=== PATIENT | female | born 1940 | race Caucasian/White ===

== ENCOUNTER 2019-06-26 20:28 | Inpatient (IN) | payer MEDICARE ==
[~2019-06-26] VITALS: Ht 157.5 cm; Wt 80.7 kg
[~2019-06-26 20:28] MED LIST: ADALAT CC90 MG; ASPIRIN EC325 M1 PO; CIPROFLOXACIN500 M3 PO; COMBIVENT RESPIM4 GM IH; FELDENE20 MG; GLUCOPHAGE1000 MG PO; LEVOXYL75 MCG; LEVOXYL88 MCG PO; LISINOPRIL-HCT1 EAC1 PO; LOVASTAT40; MAGOX 400400 MG PO; MICRONASE5 MG; MICRONASE5 MG PO; MINOCYCLINE HC100 M2 PO; MOBIC15 MG PO; NORVASC 5 MG TAB5 MG PO; ONGLYZA5 MG PO; PIOGLITAZONE15 MG; PRAVASTATIN SOD40 MG PO; SERTRALINE HCL100 MG PO; TRAMADOL 50 MG50 MG PO; VITAMIN D32000 UNIT PO; VITAMIN D3400 UNIT PO; [UNRECOGNIZED DRUG - REMARK]
[2019-06-26 20:33] VITALS: BP 139/75
[2019-06-26] MEDS ORDERED: JANUMET 50-1,01 EACH PO (20:44)
[2019-06-26 21:00] LABS: URINE BILIRUBIN NEGATIVE (Negative); URINE BLOOD NEGATIVE (Negative); URINE CLARITY CLEAR; URINE COLOR STRAW; URINE GLUCOSE-RANDOM NEGATIVE (Negative); URINE KETONES NEGATIVE (Negative); URINE LEUKOCYTES-REFLEX NEGATIVE (Negative); URINE NITRITE-REFLEX NEGATIVE (Negative); URINE PROTEIN NEGATIVE (Negative); URINE UROBILINOGEN 0.2 E.U./dl (0.2-1.0)
[2019-06-26 21:12] LABS: ABSOLUTE BASOPHILS 0.1 thou/uL (0.0-0.2); ABSOLUTE EOSINOPHILS 0.3 thou/uL (0.0-0.7); ABSOLUTE LYMPHOCYTES 2.2 thou/uL (0.8-5.3); ABSOLUTE MONOCYTES 0.5 thou/uL (0.0-1.2); ABSOLUTE NEUTROPHILS 4.9 thou/uL (1.6-8.1); BASOPHILS 0.8 %; EOSINOPHILS 3.7 %; HEMATOCRIT 32.3 % (37.0-47.0); HEMOGLOBIN 11.4 gm/dL (12.0-15.0); LYMPHOCYTES 27.8 %; MCH 30.3 pg (26.0-34.0); MCHC 35.1 g/dL (28.0-37.0); MCV 86.2 fL (80.0-100.0); MONOCYTES 6.3 %; MPV 7.8 fl. (7.2-11.1); NUCLEATED RBCS 0 /100WBC; PLATELET COUNT* 376 thou/uL (150-400); POLYS 61.4 %; RBC 3.75 mil/uL (4.20-5.00); RDW-CV 13.1 % (10.5-14.5)
[2019-06-26 21:24] LABS: CREATININE 1.8 mg/dL (0.6-1.3); POTASSIUM 3.7 mmol/L (3.5-5.1)
[2019-06-26 21:29] LABS: ALBUMIN 3.9 g/dL (3.4-5.0); TOTAL BILIRUBIN 0.2 mg/dL (<0.1-1.0); TOTAL PROTEIN 8.1 g/dL (6.4-8.2)
[2019-06-26 21:37] LABS: APTT 26.2 Seconds (25.0-31.3); INR 1.1
[2019-06-27] VITALS (9 sets, daily range): BP systolic 114–155; BP diastolic 44–96
--- NOTE | 2019-06-27 06:08 | NUR ---
RECEIVED REPORT FROM BLADE FILER CLARITA AT 0028. PT ARRIVED TO UNIT AT 0035 VIA BED. SR WITH PACS ON STROBOSCOPE OPERATOR. PT ORIENTED TO ROOM AND CALL LIGHT. PT VOICED NO CONCERNS THIS SHIFT. IV FLUIDS INFUSING. NEGATIVE SEPSIS SCREENING. HIGH FALL PRECAUTIONS IN PLACE. CALL LIGHT WITHIN REACH.
--- NOTE | 2019-06-27 10:04 | EKG ---
[place] [address] ELECTROCARDIOGRAM REPORT Name: ANTHONY EVE Room: [address] ADM IN .R.#: [id number] Admission: 06/26/19 Attend Phys: Eyal Avila MD Discharge: Date of : 42 Report #: [id number] THIS REPORT FOR: //name// [facility] ED Test Date: 2019-06-26 Test Time: 20:48:02 Pat Name: ANTHONY WEN Department: Room: [facility] Gender: F Diet Tech: : 1940 Requested By: Hermes Kim Order Number: [id number] MD: Atilio Hudson Measurements Intervals Moran Rate: 76 P: 56 LA: 159 QRS: 33 QRSD: 101 T: 43 QT: 421 QTc: 474 Interpretive Statements Sinus rhythm Multiple premature complexes, vent & supraven Minimal ST elevation, anterior leads Compared to ECG 09/15/2012 08:43:35 pvc's and pac's noted Electronically Signed On 06-27-2019 10:03:25 GRE INSTRUCTOR by Atilio Hudson [email or web address] <ELECTRONICALLY SIGNED> By: Atilio Hudson MD, FAC 06/27/19 1003 47 47 Atilio Hudson MD, [facility] /EPI
--- NOTE | 2019-06-27 13:44 | NUR ---
ASSUMED CARE OF PATIENT THIS AM AT 0730. PATIENT IS ALERT AND ORIENTED X 4. SHE DENIES PAIN AND DISCOMFORT. PATIENT CONTINUES TO RECIEVE IV FLUIDS. TELE SHOWS SR. SHE IS TAKING HER DIET WELL. DR IN TO ROUND AND NNO AT THIS TIME. WILL CONTINUE TO MONITOR PATIENT COMFORT.
--- NOTE | 2019-06-27 16:55 | NUR ---
Pt is A&O. Resides at home with her dtr and DIAMOND. Independent, DIAMOND cooks, family drives. No DME. No hx of HH or SNF. Goal is home at dc, no needs anticipated.
[2019-06-28] VITALS: BP 133/59
[2019-06-28 04:00] VITALS: BP 156/50
[2019-06-28 04:53] LABS: HEMATOCRIT 25.4 % (37.0-47.0); MCH 29.9 pg (26.0-34.0); MCV 85.4 fL (80.0-100.0); MPV 7.7 fl. (7.2-11.1); RBC 2.98 mil/uL (4.20-5.00); WBC 6.5 thou/uL (4.0-11.0)
--- NOTE | 2019-06-28 05:07 | NUR ---
ASSUMED PT CARE AT 1915. SR WITH OCCASIONAL PACS THIS SHIFT. PT DENIES PAIN THIS SHIFT. ORTHOSTATIC BP COMPLETED. HIGH FALL PRECAUTIONS IN PLACE. HOURLY ROUNDING COMPLETED. CALL LIGHT WITHIN REACH. IV FLUIDS INFUSING.
[2019-06-28 05:17] LABS: HEMOGLOBIN 8.9 gm/dL (12.0-15.0)
[2019-06-28 05:23] LABS: CALCIUM 7.9 mg/dL (8.5-10.1); CREATININE 1.1 mg/dL (0.6-1.3); MAGNESIUM 1.7 mg/dL (1.8-2.4); POTASSIUM 3.9 mmol/L (3.5-5.1)
[2019-06-28 08:00] VITALS: BP 156/68
[2019-06-28 11:30] VITALS: BP 136/48
[2019-06-28 13:20] VITALS: BP 156/68
--- NOTE | 2019-06-28 14:34 | 2DMMODE ---
[place] [address] 2 D/M-MODE ECHOCARDIOGRAM Name: ANTHONY WEN Room: [address] ADM IN [facility]#: [id number] Admission: 06/26/19 Attend Phys: Eyal Avila, Discharge: Date of : 42 Date of Service: 06/28/19 1433 Report #: [id number] THIS REPORT FOR: //name// APPROVED REPORT Study performed: 06/28/2019 10:44:03 EXAM: Comprehensive 2D, Doppler, and color-flow Echocardiogram Patient Location: In-Patient Room #: 230 Status: routine BSA: 1.76 HR: 65 bpm BP: 156/68 mmHg Rhythm: NSR Other Information Study Quality: Good Indications Syncope 2D Dimensions IVSd: 13.15 (7-11mm) LVOT Diam: 19.26 (18-24mm) LVDd: 38.65 mm PWd: 11.26 (7-11mm) Ascending Ao: 29.84 (22-36mm) LVDs: 22.81 (25-40mm) Aortic Root: 29.64 mm Volumes Left Atrial Volume (Systole) LA ESV Index: 44.30 mL/m2 Aortic Valve AoV Peak Haresh.: 1.71 m/s AO Peak Gr.: 11.71 mmHg LVOT Max P.63 mmHg AO Mean Gr.: 6.91 mmHg LVOT Mean P.44 mmHg LVOT Max V: 1.08 m/s AO V2 VTI: 42.02 cm LVOT Mean V: 0.72 m/s ALBERTINA (VTI): 2.00 cm2 LVOT V1 VTI: 28.78 cm Mitral Valve E/A Ratio: 0.80 MV Decel. Time: 288.00 ms MV E Max Haresh.: 0.97 m/[place] [address] 2 D/M-MODE ECHOCARDIOGRAM Name: OSMAN WENDamir MAXWELLE Room: [address] IN [facility].#: [id number] Admission: 06/26/19 Attend Phys: Eyal Avila, Discharge: Date of : 42 Date of Service: 06/28/19 1433 Report #: [id number] MV PHT: 83.52 ms MVA (PHT): 2.63 cm2 TDI E/Lateral E': 12.13 E/Medial E': 13.86 Medial E' Haresh.: 0.07 m/s Lateral E' Haresh.: 0.08 m/s Pulmonary Valve PV Peak Haresh.: 1.04 m/s PV Peak Gr.: 4.29 mmHg Tricuspid Valve RAP Estimate: 5.00 mmHg TR Peak Gr.: 23.82 mmHg RVSP: 28.00 mmHg PA Pressure: 28.00 mmHg Left Ventricle The left ventricle is normal size. There is normal LV segmental wall motion. Mild concentric left ventricular hypertrophy. Left ventricular systolic function is normal. LVEF is 65-70%. Grade I - abnormal relaxation pattern. Right Ventricle The right ventricle is normal size. The right ventricular systolic function is normal. Atria Left atrium is moderately dilated. Right atrium is mildly dilated. Aortic Valve Mild aortic valve sclerosis. No aortic regurgitation is present. Mild aortic stenosis. Mitral Valve There is mitral annular calcification. Mild mitral regurgitation. No evidence of mitral valve stenosis. Tricuspid Valve The tricuspid valve is normal in structure. Mild tricuspid regurgitation. The RVSP is 30-35 mmHg. Pulmonic Valve The pulmonary valve is normal in structure. There is no pulmonic [place] [address] 2 D/M-MODE ECHOCARDIOGRAM Name: ANTHONY WEN Room: [address] IN [facility]#: [id number] Admission: 06/26/19 Attend Phys: Eyal Avila, Discharge: Date of : 42 Date of Service: 06/28/19 1433 Report #: [id number] Great Vessels The aortic root is normal in size. IVC is normal in size and collapses >50% with inspiration. Pericardium There is no pericardial effusion. <Conclusion> The left ventricle is normal size. Mild concentric left ventricular hypertrophy. Left ventricular systolic function is normal. LVEF is 65-70%. Grade I - abnormal relaxation pattern. Left atrium is moderately dilated. Right atrium is mildly dilated. Mild aortic valve sclerosis. Mild aortic stenosis. Mild mitral regurgitation. Mild tricuspid regurgitation. The RVSP is 30-35 mmHg. IVC is normal in size and collapses >50% with inspiration. <ELECTRONICALLY SIGNED> By: Mohsen Leon MD, FACC 06/28/19 1433 1433 1433 Mohsen Leon MD, FACC /INF
[2019-06-28] MEDS ORDERED: LISINOPRIL2.5 MG PO (16:21)
[2019-06-28 16:35] VITALS: BP 156/68
--- NOTE | 2019-06-28 17:28 | NUR ---
ASSUMED CARE OF PT APPROX 0730. REASSESSMENT COMPLETED CHARTED. MEDICATION GIVEN CHARTED. DISCUSSED PT CARE WITH PT, PT VERBALIZED UNDERSTANDING. HOURLY ROUNDING FOR PT SAFTEY, SAFTEY PRECAUTIONS UTILIZED. PT DISHCARGE TEACHING COMPLETED, SCRIPT GIVEN. PT VERBALIZED UNDERSTANDING. PTS DAUGHTER IN ROOM DURING DISCHARGE TEACHING.
[2019-06-28 18:49] LABS: HEMATOCRIT 28.1 % (37.0-47.0); HEMOGLOBIN 9.7 gm/dL (12.0-15.0)
== END 2019-06-28 19:00 | disposition home or self-care (01) | DRG 682 ==
LOC: M.ERS 20:28 → M.2W 22:50 → M.TBA-ER 22:50 → M.2W 06-27 00:41
PROVIDERS: Emergency Medicine Emergency Medical Services; Family Medicine; Registered Nurse; ADMIT Internal Medicine
DX: N17.9 Acute kidney failure, unspecified (principal); G93.41 Metabolic encephalopathy; I95.1 Orthostatic hypotension; E66.9 Obesity, unspecified; M19.90 Unspecified osteoarthritis, unspecified site; D64.9 Anemia, unspecified; E78.00 Pure hypercholesterolemia, unspecified; E03.9 Hypothyroidism, unspecified; I10 Essential (primary) hypertension; G89.29 Other chronic pain; E11.9 Type 2 diabetes mellitus without complications; Z79.82 Long term (current) use of aspirin; Z79.84 Long term (current) use of oral hypoglycemic drugs; Z79.899 Other long term (current) drug therapy; Z88.8 Allergy status to other drugs, medicaments and biological substances; Z90.12 Acquired absence of left breast and nipple; Z90.49 Acquired absence of other specified parts of digestive tract; Z87.891 Personal history of nicotine dependence; Z68.32 Body mass index [BMI] 32.0-32.9, adult; Z85.3 Personal history of malignant neoplasm of breast; T50.995A Adverse effect of other drugs, medicaments and biological substances, initial encounter

== ENCOUNTER → 2019-09-22 | Outpatient (CLI) | payer MEDICARE ==
[~2019-09-22] MED LIST changes: +ACTOS 30 MG TAB30 M1 PO; +HUMULIN R100 UNIT/1 PO; +JANUMET 50-1,01 EACH PO; +LISINOPRIL2.5 MG PO; +METFORMIN HCL500 M3 PO
--- NOTE | ~2019-09-22 | PAINCON ---
[address] [address] PAIN MANAGEMENT CONSULTATION Name: ANTHONY WEN [id number] Admission: 09/22/19 Attend Phys: Eva Worley MD Discharge: Date of : 42 Report #: [id number] THIS REPORT FOR: //name// cc: Atilio Storm MD, David L. MD ~ THIS REPORT FOR: //name// CC: Atilio Worley DATE OF SERVICE: 09/22/2019 PRIMARY CARE PHYSICIAN: Atilio Storm MD CHIEF COMPLAINT: Pain in the low back area and down into the calf on the right and left side. HISTORY: The patient is a 79-year-old female who has been seen in the pain clinic in the past because of lumbar radiculopathy. She rates her pain today as 8/10. She describes it as an aching feeling down into her legs and into her calf, right side and left side are involved. Notes that the pain is worse when she is prolonged standing. Exact problematic with walking. Sitting and lying down improves her discomfort. She describes it as constant, cramping, aching brief and tender. She underwent an epidural steroid injection in 2017. She noted improvement in her pain. She has returned today with the hopes of undergoing another epidural injection. She denies any new bowel or bladder dysfunction. Did note some elevation in her blood sugars in the past as a result of the injection. This was somewhat temporary for a day or so. ALLERGIES: No known drug allergies. CURRENT MEDICATIONS: Metformin 1000 mg, amlodipine 5 mg, lisinopril 20/12, meloxicam 15 mg, insulin. PAIN CLINIC ASSESSMENT AND PQRS: 1. Osteoarthritis. The patient does have joint disease and arthritis. She is not being treated for rheumatoid arthritis. 2. Height 5 feet 2 inches, weight 182 pounds, BMI is 33.4. 3. Vital Signs: Blood pressure 149/83, heart rate 99, respiratory rate 16, room air saturation 96%, temperature is 98.0. 4. Pain score 6/10. 5. Fall history: The patient has not fallen in the last 3 months. 6. Blood thinner. The patient is not on a blood thinning medication. 7. Hypertension. The patient is being treated for hypertension. 8. Opioids greater than 6 weeks. The patient is not on an opioid regimen. 9. Risk assessment tool, [place] [address] PAIN MANAGEMENT CONSULTATION Name: ANTHONY WEN Room: [facility]#: [id number] Admission: 09/22/19 Attend Phys: Eva Worley MD Discharge: Date of : 41 Report #: [id number] 10. Functional assessment tool has been reviewed. 11. Recreational drug use: The patient denies. 12. Tobacco: The patient denies. PHYSICAL EXAMINATION: GENERAL: The patient is a well-developed, well-nourished white female. Appears her stated age. She is alert and oriented x 3. Her affect is appropriate. Speech is fluent. HEENT: Normocephalic, atraumatic. Extraocular eye muscles intact. Sclerae nonicteric. Mucous membranes are moist. NECK: Without adenopathy or JVD. HEART: Regular rate. ABDOMEN: Nontender. EXTREMITIES: Lower extremity muscles strength 5-/5. The patient has pain and discomfort that is radiating down in the L4-L5 dermatomal distribution on the left as well as the right leg. IMPRESSION: 1. Lumbar radiculopathy in the L4-L5 dermatomal distribution, left and right leg. 2. Depression. 3. Hypertension. 4. Hypothyroidism. 5. Type 2 diabetes. 6. Chronic pulmonary disease. 7. History of spinal stenosis. RECOMMENDATIONS: We discussed treatment options with the patient. Risks and benefits of an epidural steroid injection were again discussed. They include but are not limited to infection, worsening the pain, no improvement in pain. The patient had some elevation in her blood sugars in the past. She will monitor them and treat it accordingly. The patient was then taken after questions were sought and answered to the procedure area. She was then assisted in getting on examination table. Her back was sterilely prepped with Betadine solution. A 0.25% bupivacaine was infiltrated at the L4-L5 interspace. A 17-gauge Tuohy with loss of resistance technique was used to gain access to the epidural space. There was no CSF, heme or paresthesia. Total of 80 mg Depo-Medrol, 40 mg triamcinolone and 2 mL of 0.25% bupivacaine was injected. The patient tolerated the procedure well. She remained in the Pain Clinic for an appropriate amount of time. She will [place] [address] PAIN MANAGEMENT CONSULTATION Name: ANTHONY WEN Room: [facility]#: [id number] Admission: 09/22/19 Attend Phys: Eva Worley MD Discharge: Date of : 41 Report #: [id number] We would like to thank you for letting us participate in her care. We hope she continues to improve. By: 1407 1431N. Narendra Worley MD /PMT
== END ==
LOC: M.PC 09:50
DX: M54.5 Low back pain (principal); F32.9 Major depressive disorder, single episode, unspecified; I10 Essential (primary) hypertension; E03.9 Hypothyroidism, unspecified; E11.9 Type 2 diabetes mellitus without complications; J98.4 Other disorders of lung; Z87.898 Personal history of other specified conditions; Z79.84 Long term (current) use of oral hypoglycemic drugs; Z79.811 Long term (current) use of aromatase inhibitors; Z79.891 Long term (current) use of opiate analgesic; Z79.899 Other long term (current) drug therapy

== ENCOUNTER → 2019-12-06 | Outpatient (CLI) | payer MEDICARE ==
[2019-12-06 09:46] LABS: CREATININE 1.2 mg/dL (0.6-1.3)
== END ==
LOC: M.LAB 09:14 → M.CT 11:00
PROVIDERS: ATTEND Internal Medicine
DX: D25.9 Leiomyoma of uterus, unspecified (principal); N85.8 Other specified noninflammatory disorders of uterus

== ENCOUNTER → 2020-02-16 | Outpatient (CLI) | payer MEDICARE ==
[~2020-02-16] MED LIST changes: +VOLTAREN GEL 1100 G1 TOP
--- NOTE | 2020-02-28 15:40 | PAINCON ---
[address] [address] PAIN MANAGEMENT CONSULTATION Name: ANTHONY WEN [id number] Admission: 02/16/20 Attend Phys: Eva Worley MD Discharge: Date of : 41 Report #: [id number] THIS REPORT FOR: //name// cc: Tika Zee Tammy RNP ~ THIS REPORT FOR: //name// CC: Eva Zee DATE OF SERVICE: 02/16/2020 CHIEF COMPLAINT: Both knees are painful. HISTORY: The patient is a 80-year-old female who has returned to the pain clinic. She underwent an epidural steroid injection for low back pain. She noticed some improvement in that and has had pretty good resolution of the lumbar radicular pain at this juncture. Her complaint today is that of bilateral knee pain. She has had knee injections in the past. She has had steroid injections. She has also had what sounds like injections per her report for lubrication of her knees. She rates her pain as a 5/10 in regards to the knees today. He has been using meloxicam to help with the pain. She notes that walking, standing can be problematic. Pain improves with rest. ALLERGIES: No known drug allergies. CURRENT MEDICATIONS: Metformin 1000 mg, amlodipine 5 mg, lisinopril 20/12.5, meloxicam 15 mg, insulin. PAIN CLINIC ASSESSMENT AND PQRS: 1. The patient does have some osteoarthritic changes involving her knees. She is not being treated for rheumatoid arthritis. 2. Height 5 feet 2 inches, weight 185 pounds, BMI is 33. 3. Vital Signs: Blood pressure 139/61, heart rate 79, respiratory rate 20, room air saturation 97%, temperature 98.6. 4. Pain intensity is 5/10. 5. Fall history: The patient has not fallen since we saw her last. 6. Blood thinner. The patient is not on a blood thinning medication. 7. Hypertension. The patient is not being treated for hypertension. 8. Opioids greater than 6 weeks. The patient is not on opioid regimen. 9. Risk assessment tool, low for opioid use. 10. Functional assessment tool has been reviewed. 11. Recreational drug use. The patient denies. 12. Tobacco: The patient denies. PHYSICAL EXAMINATION: [place] [address] PAIN MANAGEMENT CONSULTATION Name: ANTHONY WEN Room: [facility]#: [id number] Admission: 02/16/20 Attend Phys: Eva Worley MD Discharge: Date of : 41 Report #: [id number] GENERAL: The patient is a well-developed, well-nourished white female. Appears her stated age. She is alert and oriented x 3. Her affect is appropriate. Speech is fluent. She is accompanied. HEENT: Normocephalic, atraumatic. Extraocular eye muscles intact. Sclerae nonicteric. Mucous membranes are moist. NECK: Without adenopathy. The patient is awaiting official cover. HEART: Regular rate. ABDOMEN: Nontender. EXTREMITIES: Upper extremity muscle strength 5/5 for the major muscle groups in the upper extremity. The patient has pain and discomfort with soreness and decreased range of motion in her knees. Complains of foxn-pu-temf type of pain and discomfort. The patient is noticing increased pain and discomfort with activities of daily living. IMPRESSION: 1. History of bilateral knee pain with osteoarthritic changes. 2. History of lumbar radiculopathy, L4-L5 dermatomal distribution, improved. 3. Depression. 4. Hypertension. 5. Hypothyroidism. 6. Type 2 diabetes. 7. Chronic pulmonary disease. 8. History of spinal stenosis. RECOMMENDATIONS: We discussed treatment options with the patient. The patient has had injections in her knees. She had the last injection a few months ago. We discussed the limitations and the number of injections of steroid that one should receive in the knee area. At this juncture, I think we should try a more conservative approach. We can consider use of tramadol. We can also consider the use of a Voltaren gel to the affected area. Hopefully, that would be more helpful and efficacious in the knee area. Possibility of injections still remain an option. The patient also will continue to monitor her GI tract in regards to the chronic use of nonsteroidal anti-inflammatory medications. These can cause GI upset. The patient will also consider possibility of tramadol in the near future. We would like to thank you for letting us participate in her care. We hope she continues to improve. <ELECTRONICALLY SIGNED> By: Eva Worley MD 02/28/20 1540 0840 1329N. Narendra Worley MD /[facility]
== END ==
LOC: M.PC 08:29
PROVIDERS: ATTEND Anesthesiology Pain Medicine
DX: M25.561 Pain in right knee (principal); M25.562 Pain in left knee; F32.9 Major depressive disorder, single episode, unspecified; I10 Essential (primary) hypertension; E03.9 Hypothyroidism, unspecified; E11.9 Type 2 diabetes mellitus without complications; J98.4 Other disorders of lung; Z79.899 Other long term (current) drug therapy; Z87.39 Personal history of other diseases of the musculoskeletal system and connective tissue

== ENCOUNTER 2020-06-24 07:35 | Inpatient (IN) | payer MEDICARE ==
[~2020-06-24] VITALS: Ht 157.5 cm; Wt 80.7 kg
--- NOTE | ~2020-06-24 | PROC ---
[address] [address] PROCEDURE REPORT Name: ANTHONY EVE Room: [address] IN M.R.#: [id number] Admission: 06/24/20 Attend Phys: Antonina Carlin MD Discharge: 06/27/20 Date of : 41 Report #: [id number] THIS REPORT FOR: cc: Tika Zee Tammy RNP ~ [facility],Medical Records Staff For GI report, please see the Provation report in Perceptive 7 content. By: 1458Medical Records Staff [facility] /JEWEL
[~2020-06-24 07:35] MED LIST changes: +LEVOXYL100 MCG PO; -LEVOXYL88 MCG PO; +LISINOPRIL20 MG PO
[2020-06-24 07:38] VITALS: BP 186/81
[2020-06-24] MEDS ORDERED: FUROSEMIDE 40 M40 MG PO (07:45)
[2020-06-24] MEDS ORDERED: JANUMET 50-1,01 EACH PO (07:45)
[2020-06-24] MEDS ORDERED: CHILDREN'S ASPI81 MG PO (07:45)
[2020-06-24] MEDS ORDERED: PAXIL40 MG PO (07:46)
[2020-06-24] MEDS ORDERED: PROAIR HFA8.5 GM INH (07:47)
[2020-06-24 08:10] LABS: ABSOLUTE BASOPHILS 0.1 thou/uL (0.0-0.2); ABSOLUTE EOSINOPHILS 0.1 thou/uL (0.0-0.7); ABSOLUTE LYMPHOCYTES 1.3 thou/uL (0.8-5.3); ABSOLUTE MONOCYTES 0.5 thou/uL (0.0-1.2); ABSOLUTE NEUTROPHILS 8.1 thou/uL (1.6-8.1); BASOPHILS 0.6 %; EOSINOPHILS 0.7 %; HEMATOCRIT 26.9 % (37.0-47.0); LYMPHOCYTES 12.9 %; MCH 27.7 pg (26.0-34.0); MCHC 33.7 g/dL (28.0-37.0); MCV 82.3 fL (80.0-100.0); MONOCYTES 4.6 %; MPV 7.5 fl. (7.2-11.1); NUCLEATED RBCS 0 /100WBC; PLATELET COUNT* 490 thou/uL (150-400); POLYS 81.2 %; RBC 3.27 mil/uL (4.20-5.00); RDW-CV 14.1 % (10.5-14.5)
[2020-06-24 08:15] LABS: CALCIUM 8.7 mg/dL (8.5-10.1); CREATININE 2.6 mg/dL (0.6-1.3)
[2020-06-24 08:16] LABS: URINE BILIRUBIN NEGATIVE (Negative); URINE BLOOD NEGATIVE (Negative); URINE CLARITY CLEAR; URINE COLOR YELLOW; URINE GLUCOSE-RANDOM NEGATIVE (Negative); URINE KETONES NEGATIVE (Negative); URINE LEUKOCYTES-REFLEX NEGATIVE (Negative); URINE NITRITE-REFLEX NEGATIVE (Negative); URINE PROTEIN NEGATIVE (Negative); URINE SPECIFIC GRAVITY 1.025 (1.005-1.030); URINE UROBILINOGEN 0.2 E.U./dl (0.2-1.0)
[2020-06-24 08:20] LABS: ALBUMIN 3.3 g/dL (3.4-5.0); TOTAL BILIRUBIN 0.3 mg/dL (<0.1-1.0); TOTAL PROTEIN 7.2 g/dL (6.4-8.2)
[2020-06-24 12:16] VITALS: BP 123/45; BP 177/92
[2020-06-24 13:16] LABS: CHOLESTEROL 190 mg/dL (<200); HDL CHOLESTEROL 39 mg/dL (>40); LDL CHOLESTEROL 121 mg/dL (<100); TC:HDL 4.9 Ratio (Not establshd); TRIGLYCERIDE 150 mg/dL (<150); VLDL 30 mg/dL (<40)
[2020-06-24 13:17] LABS: SERUM ASSESSMENT Clear
[2020-06-24 16:15] VITALS: BP 113/42
[2020-06-24 21:30] VITALS: BP 166/61
[2020-06-25 04:40] VITALS: BP 149/45
[2020-06-25 05:11] LABS: HEMATOCRIT 20.3 % (37.0-47.0); MCH 28.2 pg (26.0-34.0); MCHC 34.2 g/dL (28.0-37.0); MCV 82.4 fL (80.0-100.0); MPV 7.8 fl. (7.2-11.1); RBC 2.47 mil/uL (4.20-5.00); RDW-CV 14.1 % (10.5-14.5); WBC 10.8 thou/uL (4.0-11.0)
[2020-06-25 05:44] LABS: ALBUMIN 2.6 g/dL (3.4-5.0); CALCIUM 8.3 mg/dL (8.5-10.1); CREATININE 2.4 mg/dL (0.6-1.3); MAGNESIUM 1.6 mg/dL (1.8-2.4); POTASSIUM 3.7 mmol/L (3.5-5.1); TOTAL BILIRUBIN 0.1 mg/dL (<0.1-1.0); TOTAL PROTEIN 5.8 g/dL (6.4-8.2)
[2020-06-25 07:40] VITALS: BP 120/47
--- NOTE | 2020-06-25 09:21 | EKG ---
[place] [address] ELECTROCARDIOGRAM REPORT Name: OSMAN WENN EVE Room: [address] ADM IN .R.#: [id number] Admission: 06/24/20 Attend Phys: Antonina Carlin, Discharge: Date of : 42 Date of Service: 06/24/20 0740 Report #: [id number] THIS REPORT FOR: //name// [facility] ED Test Date: 2020-06-24 Test Time: 07:40:06 Pat Name: ANTHONY WEN Department: Room: [facility] Gender: F Bench Shear Operator: CCD : 1940 Requested By: Hermes Kim Order Number: [id number] MD: Atilio Hudson Measurements Intervals Yantis Rate: 75 P: 53 DC: 158 QRS: 24 QRSD: 100 T: 26 QT: 407 QTc: 455 Interpretive Statements Sinus rhythm Ventricular premature complex Borderline ST elevation, early repolarization Compared to ECG 06/26/2019 20:48:02 Ventricular premature complex(es) now present ST (T wave) deviation still present Electronically Signed On 06-25-2020 9:21:05 PACKAGE SORTER by Atilio Hudson [email or web address] <ELECTRONICALLY SIGNED> By: Atilio Hudson MD, FACC 06/25/20920 9 9 Atilio Hudson MD, FAC /EPI
[2020-06-25 10:08] LABS: HEMATOCRIT 20.1 % (37.0-47.0); MCH 27.8 pg (26.0-34.0); MCHC 32.9 g/dL (28.0-37.0); MCV 84.6 fL (80.0-100.0); MPV 7.5 fl. (7.2-11.1); RBC 2.37 mil/uL (4.20-5.00)
[2020-06-25 10:12] LABS: HEMOGLOBIN 6.6 gm/dL (12.0-15.0)
[2020-06-25 12:13] VITALS: BP 100/30; BP 119/39; BP 139/49; BP 157/46; BP 157/67
[2020-06-25 20:00] VITALS: BP 180/74
[2020-06-26 06:39] LABS: ABSOLUTE BASOPHILS 0.1 thou/uL (0.0-0.2); ABSOLUTE EOSINOPHILS 0.7 thou/uL (0.0-0.7); ABSOLUTE LYMPHOCYTES 2.7 thou/uL (0.8-5.3); ABSOLUTE MONOCYTES 0.7 thou/uL (0.0-1.2); ABSOLUTE NEUTROPHILS 5.5 thou/uL (1.6-8.1); BASOPHILS 1.1 %; EOSINOPHILS 7.3 %; HEMATOCRIT 22.3 % (37.0-47.0); HEMOGLOBIN 7.5 gm/dL (12.0-15.0); LYMPHOCYTES 28.1 %; MCH 28.3 pg (26.0-34.0); MCHC 33.5 g/dL (28.0-37.0); MCV 84.4 fL (80.0-100.0); MONOCYTES 6.8 %; MPV 7.7 fl. (7.2-11.1); NUCLEATED RBCS 0 /100WBC; PLATELET COUNT* 351 thou/uL (150-400); POLYS 56.7 %; RBC 2.64 mil/uL (4.20-5.00); WBC 9.7 thou/uL (4.0-11.0)
[2020-06-26 07:12] LABS: ALBUMIN 2.9 g/dL (3.4-5.0); CALCIUM 8.3 mg/dL (8.5-10.1); CREATININE 1.4 mg/dL (0.6-1.3); MAGNESIUM 1.9 mg/dL (1.8-2.4); POTASSIUM 4.8 mmol/L (3.5-5.1); TOTAL BILIRUBIN 0.1 mg/dL (<0.1-1.0); TOTAL PROTEIN 5.8 g/dL (6.4-8.2)
[2020-06-26 08:05] VITALS: BP 147/53
[2020-06-26 14:05] LABS: HEMATOCRIT 21.1 % (37.0-47.0); HEMOGLOBIN 7.1 gm/dL (12.0-15.0)
[2020-06-26 16:57] VITALS: BP 151/57
[2020-06-26 20:35] VITALS: BP 142/55
[2020-06-27 06:27] LABS: HEMATOCRIT 21.8 % (37.0-47.0); HEMOGLOBIN 7.3 gm/dL (12.0-15.0); MCH 28.4 pg (26.0-34.0); MCHC 33.4 g/dL (28.0-37.0); MCV 84.9 fL (80.0-100.0); MPV 7.5 fl. (7.2-11.1); RBC 2.57 mil/uL (4.20-5.00); RDW-CV 14.3 % (10.5-14.5); WBC 10.1 thou/uL (4.0-11.0)
[2020-06-27 06:54] LABS: CREATININE 1.1 mg/dL (0.6-1.3); MAGNESIUM 1.9 mg/dL (1.8-2.4); POTASSIUM 3.9 mmol/L (3.5-5.1)
[2020-06-27] MEDS ORDERED: OMEPRAZOLE40 MG PO (08:02)
[2020-06-27] MEDS ORDERED: ZOFRAN ODT4 MG PO (08:02)
[2020-06-27] MEDS ORDERED: COLACE100 MG PO (08:05)
[2020-06-27] MEDS ORDERED: FEOSOL325 M1 PO (08:05)
[2020-06-27 08:10] VITALS: BP 111/69
--- NOTE | 2020-06-27 08:32 | CON ---
[address] [address] CONSULTATION Name: ANTHONY WEN Room: [address] IN M.R.#: [id number] Admission: 06/24/20 Attend Phys: Antonina Carlin MD Discharge: Date of : 41 Report #: [id number] THIS REPORT FOR: cc: Tika Zee Tammy RNP ~ Benita Dutta MD DATE OF SERVICE: 06/25/2020 NEPHROLOGY CONSULTATION CONSULTING PHYSICIAN: Antonina Carlin MD REASON FOR NEPHROLOGY CONSULTATION: Acute kidney injury on possible chronic kidney disease. REASON FOR ADMISSION: Acute kidney injury. HISTORY OF PRESENT ILLNESS: This is a 80-year-old female, who has a history of diabetes, hypertension, gallstones. She came in because of abdominal pain and having decreased appetite and she also had some loose stools. She was found to have a creatinine of 2.6. Hemoglobin was 9.0. She was hydrated and her creatinine has come down to 2.4. Her baseline creatinine seems to be around 1.2 and this was back in November of this year, but her hemoglobin has dropped from 9 grams to 7 grams. GI has been consulted on her and stool for occult blood has not been checked yet. She does take meloxicam on a daily basis. She does take lisinopril and she does not drink much water. Her blood pressures have been more or less stable. Renal ultrasound does not show any hydronephrosis. She had right-sided nonobstructive kidney stones. She is iron deficient. Her iron saturation is 13%. She says she has no difficulty urinating. She is feeling better today. ALLERGIES: STATINS, SAXAGLIPTIN AND SOLIFENACIN. REVIEW OF SYSTEMS: As mentioned in history of present illness, otherwise 10-point review of systems done, negative. PAST MEDICAL AND SURGICAL HISTORY: Includes cholecystectomy, left-sided mastectomy gallstones, diabetes type 2, hypertension, dyslipidemia, possible chronic kidney disease stage 3B; could be because of diabetes and hypertension. HOME MEDICATIONS: Include albuterol, paroxetine, furosemide 40 mg a day, lisinopril 20 mg a day, aspirin 81 mg a day, levothyroxine, and meloxicam. FAMILY HISTORY: No history of any kidney [place] [address] CONSULTATION Name: ANTHONY WEN Room: [address]#: [id number] Admission: 06/24/20 Attend Phys: Antonina Carlin MD Discharge: Date of : 42 Report #: [id number] SOCIAL HISTORY: She does not smoke or drink alcohol or use illicit drug. She lives at home. PHYSICAL EXAMINATION: VITAL SIGNS: Blood pressure is 149/45, respiratory rate is 20, pulse rate is 86, temperature is 36.6, respiratory rate is 20, and pulse ox was on room air 97%. GENERAL: She is awake, alert, oriented x 3. HEAD AND EYES: Atraumatic and normocephalic. Conjunctivae normal. EARS, NOSE, AND THROAT: Normal ears, nose and mucous membranes are a little bit dry. NECK: There is no JVD. CHEST: Bilaterally clear to auscultation posteriorly. No crackles or wheezing. CARDIOVASCULAR: S1, S2 normal. No murmurs. ABDOMEN: Soft, nondistended, nontender. Bowel sounds are present. EXTREMITIES: Lower extremities: There is no lower extremity edema. NEUROLOGICAL FUNCTION: Gross neurological function is intact. PSYCHIATRIC: Mood and affect seems to be normal. SKIN: Dry. LABORATORY DATA: Hemoglobin is 7.0; down from 9.0, and platelet count is 418; down from 490. Sodium is 144, potassium is 3.7, BUN is 50, creatinine is 2.4; down from 2.6. Iron saturation was 13%. Other labs are reviewed. IMAGING: Renal ultrasound and abdominopelvic CT scan were reviewed. ASSESSMENT: 1. Acute kidney injury, which is because of dehydration, use of Lasix, lisinopril and meloxicam at home and not drinking enough water, baseline creatinine is around 1.2 and creatinine was 2.6 on admission. There is no evidence of any hydronephrosis on her imaging, but right kidney has non-punctate and non-obstructing stones. UA was unremarkable. 2. Abdominal pain. Lipase does not seem to be so high to signify pancreatitis, but we will defer to primary team and abdominal pain is gone now. 3. History of breast cancer with left mastectomy. 4. Iron deficiency anemia. GI has been consulted; we will defer to them. 5. Hypertension. Blood pressure is currently controlled. 6. Diabetes mellitus type 2. We will defer to primary team for management. 7. Hyperlipidemia. PLAN: 1. Please make sure her I's and O's are being monitored. 2. [place] [address] CONSULTATION Name: ANTHONY WEN Room: [address] IN M.R.#: [id number] Admission: 06/24/20 Attend Phys: Antonina Carlin MD Discharge: Date of : 42 Report #: [id number] 3. Continue to hold her lisinopril, meloxicam, metformin as well as Lasix and she should not go home on lisinopril, meloxicam and Lasix for now. 4. I also started her on some oral iron supplements until GI evaluates her. Thank you for this consultation. We will continue to follow with you. The patient should follow up with us in our office in 2-4 weeks after discharge. Discussed with the patient and the patient's nurse. <ELECTRONICALLY SIGNED> By: Benita Dutta MD 06/27/20 0832 1010 1032Atorin Dutta MD /nt
[2020-06-27 09:51] VITALS: BP 111/69
[2020-06-27 09:57] VITALS: BP 111/69
[2020-06-27 10:44] VITALS: BP 111/69
[2020-06-27 11:08] VITALS: BP 111/69
[2020-06-27 11:53] VITALS: BP 111/69
--- NOTE | 2020-06-28 15:08 | PATH ---
[address] [address] PATHOLOGY RPT PROCEDURE Name: KATIA EVE Room: [address] IN M.R.#: [id number] Admission: 06/24/20 Date of : 42 Discharge: 06/27/20 Report #: [id number] Path Case #: [id number] L[facility] Accession Number: [id number] . 01 Material submitted: . gastrointestinal site - ANTRAL BIOPSIES FOR GASTRIC AND DUODENAL ULCERS . 01 Clinician provided ICD-10: K85.80 N17.9 . 01 Clinical history: . OTHER ACUTE PANCREATITIS WITHOUT NECROSIS OR INFECTION ACUTE KIDNEY FAILURE,UNSPECIFIED . 02 Diagnosis: Antral biopsies: - Severe chronic active antral gastritis with abundant Helicobacter pylori organisms, negative for granulomatous and dysplasia. (OZZY:alonzo; 06/28/2020) . Special stain: H. pylori immuno MBR 06/28/2020 1156 Local . 02 Electronically signed: . Mor Yanes MD, Pathologist NPI- [id number] . 01 Gross description: . The specimen is received in formalin, labeled "Katia Licona, antral biopsies for gastric/duodenal ulcers". Received are two segments of pale marcelo soft tissue ranging in size from 0.4 to 0.5 cm in maximum dimensions. The specimen is submitted entirely in cassette A1. (CAA; 06/27/2020) QAC/QAC 06/28/2020 1155 Local . 02 Pathologist provided ICD-10: K29.50, B96.81 . 02 CPT . 982057, E36604 Specimen Comment: A courtesy copy of this report has been sent to [phone] Specimen Comment: Report sent to Performed at: [address] [id number] MD Alexei Carmen MD Phone: [phone] Performed at: [address] [place] [address] PATHOLOGY RPT PROCEDURE Name: OSMAN LICONAN EVE Room: [address] IN ..#: [id number] Admission: 06/24/20 Date of : 42 Discharge: 06/27/20 Report #: [id number] Path Case #: [id number] [facility] [address], [place] [id number] MD Mor Yanes MD Phone: [phone]
== END 2020-06-27 11:35 | disposition home health service (06) | DRG 380 ==
LOC: M.ERS 07:35 → M.TBA-ER 10:22 → M.3W 10:22
PROVIDERS: Emergency Medicine Emergency Medical Services; Internal Medicine; ADMIT Internal Medicine; ATTEND Internal Medicine
PROC: 30233N1 Transfusion of Nonautologous Red Blood Cells into Peripheral Vein, Percutaneous Approach (ICD-10-PCS; principal; 2020-06-25)
PROC: 0DB78ZX Excision of Stomach, Pylorus, Via Natural or Artificial Opening Endoscopic, Diagnostic (ICD-10-PCS; 2020-06-26)
DX: K22.11 Ulcer of esophagus with bleeding (principal); N17.0 Acute kidney failure with tubular necrosis; E44.0 Moderate protein-calorie malnutrition; D62 Acute posthemorrhagic anemia; K31.5 Obstruction of duodenum; E78.5 Hyperlipidemia, unspecified; K25.4 Chronic or unspecified gastric ulcer with hemorrhage; E11.22 Type 2 diabetes mellitus with diabetic chronic kidney disease; K26.4 Chronic or unspecified duodenal ulcer with hemorrhage; I12.9 Hypertensive chronic kidney disease with stage 1 through stage 4 chronic kidney disease, or unspecified chronic kidney disease; E66.9 Obesity, unspecified; K21.01 Gastro-esophageal reflux disease with esophagitis, with bleeding; N18.32 Chronic kidney disease, stage 3b; E86.0 Dehydration; E78.00 Pure hypercholesterolemia, unspecified; Z20.822 Contact with and (suspected) exposure to COVID-19; Z90.49 Acquired absence of other specified parts of digestive tract; Z85.3 Personal history of malignant neoplasm of breast; Z90.12 Acquired absence of left breast and nipple; Z68.32 Body mass index [BMI] 32.0-32.9, adult; Z79.82 Long term (current) use of aspirin; Z79.899 Other long term (current) drug therapy; Z79.84 Long term (current) use of oral hypoglycemic drugs; Z88.8 Allergy status to other drugs, medicaments and biological substances; Z87.891 Personal history of nicotine dependence

== ENCOUNTER 2020-07-05 07:34 | Emergency (ER) | payer MEDICARE ==
[~2020-07-05] VITALS: Ht 157.5 cm; Wt 83.0 kg
[~2020-07-05 07:34] MED LIST changes: +CHILDREN'S ASPI81 MG PO; +COLACE100 MG PO; +FEOSOL325 M1 PO; +FUROSEMIDE 40 M40 MG PO; +OMEPRAZOLE40 MG PO; +PAXIL40 MG PO; +PROAIR HFA8.5 GM INH; +ZOFRAN ODT4 MG PO
[2020-07-05] MEDS ORDERED: ZESTRIL20 MG PO (07:43)
[2020-07-05 08:45] LABS: ABSOLUTE BASOPHILS 0.1 thou/uL (0.0-0.2); ABSOLUTE EOSINOPHILS 0.1 thou/uL (0.0-0.7); ABSOLUTE LYMPHOCYTES 1.6 thou/uL (0.8-5.3); ABSOLUTE MONOCYTES 0.7 thou/uL (0.0-1.2); ABSOLUTE NEUTROPHILS 5.1 thou/uL (1.6-8.1); BASOPHILS 1.2 %; EOSINOPHILS 1.1 %; HEMOGLOBIN 7.6 gm/dL (12.0-15.0); LYMPHOCYTES 20.6 %; MCH 28.2 pg (26.0-34.0); MCHC 33.2 g/dL (28.0-37.0); MCV 85.2 fL (80.0-100.0); MONOCYTES 9.9 %; MPV 7.3 fl. (7.2-11.1); NUCLEATED RBCS 0 /100WBC; PLATELET COUNT* 491 thou/uL (150-400); POLYS 67.2 %; RDW-CV 14.9 % (10.5-14.5); WBC 7.5 thou/uL (4.0-11.0)
[2020-07-05 08:58] LABS: CALCIUM 8.3 mg/dL (8.5-10.1); CREATININE 1.4 mg/dL (0.6-1.3); POTASSIUM 3.7 mmol/L (3.5-5.1)
[2020-07-05 09:03] LABS: TOTAL BILIRUBIN 0.2 mg/dL (<0.1-1.0); TOTAL PROTEIN 6.9 g/dL (6.4-8.2)
[2020-07-05] MEDS ORDERED: PROTONIX40 M2 PO (10:18)
[2020-07-05] MEDS ORDERED: CARAFATE 1 GM TA1 G1 PO (10:18)
[2020-07-05 10:55] VITALS: BP 145/66
--- NOTE | 2020-07-05 13:40 | EKG ---
[place] [address] ELECTROCARDIOGRAM REPORT Name: ANTHONY EVE Room: [facility]#: [id number] Admission: 07/05/20 Attend Phys: Discharge: 07/05/20 Date of : 42 Date of Service: 07/05/20 0738 Report #: [id number] THIS REPORT FOR: //name// [facility] ED Test Date: 2020-07-05 Test Time: 07:38:22 Pat Name: ANTHONY WEN Department: Room: Gender: F [employer] Tool: JEWEL : 1940 Requested By: Hermes Kim Order Number: [id number] MD: Mohsen Leon Measurements Intervals [place] Rate: 72 P: 38 [place]: 161 QRS: -8 QRSD: 98 T: 33 QT: 405 QTc: 444 Interpretive Statements Sinus rhythm Atrial premature complexes in couplets Compared to ECG 06/24/2020 07:40:06 Atrial premature complex(es) now present Ventricular premature complex(es) no longer present ST (T wave) deviation no longer present Electronically Signed On 07-05-2020 13:40:22 COMMUNICATIONS DIRECTOR by Mohsen Leon [email or web address] <ELECTRONICALLY SIGNED> By: Mohsen Leon MD, FACC 07/05/20 1340 7 7 Mohsen Leon MD, FACC /EPI
== END 2020-07-05 10:56 | disposition home or self-care (01) ==
LOC: M.ERS 07:34
PROVIDERS: Emergency Medicine Emergency Medical Services
DX: R10.11 Right upper quadrant pain (principal); R10.13 Epigastric pain; I10 Essential (primary) hypertension; E11.9 Type 2 diabetes mellitus without complications; E78.5 Hyperlipidemia, unspecified; Z79.82 Long term (current) use of aspirin; Z79.899 Other long term (current) drug therapy; Z88.8 Allergy status to other drugs, medicaments and biological substances